=== PATIENT | male | born 1970 | race Caucasian/White ===

== ENCOUNTER 2021-09-27 09:20 | Emergency (ER) | payer SELFPAY ==
--- NOTE | ~2021-09-27 | US_ITS ---
EXAMINATION: US RETROPERITONEAL LIMITED (RENAL ONLY) CLINICAL INFORMATION: L sided pain hx of kidney stones. COMPARISON: None TECHNIQUE: Ultrasound of the kidneys and bladder are performed using grayscale imaging and color Doppler. FINDINGS: RIGHT KIDNEY: 11.1 x 5.4 x 6.8 cm (SAG x AP x TRV). The kidney is normal in size, contour, and echogenicity. Renal cortical thickness is normal. No focal parenchymal lesions or hydronephrosis. There are specular echoes with associated twinkling artifact on color Doppler consistent with nonobstructing calculi. Larger is interpolar measuring 1.3 x 0.5 x 1.0 cm. There is mid to lower pole calculus or 0.8 x 0.5 cm. LEFT KIDNEY: 13.4 x 6.8 x 5.0 cm (SAG x AP x TRV). The kidney is normal in size, contour, and echogenicity. Renal cortical thickness is normal. There is a simple cyst lower pole measuring 1.2 cm. No additional imaging follow-up required. There is moderate hydronephrosis. A nonobstructing lower pole calculus is present measuring 0.8 x 0.4 cm. Obstructing ureteral calculus is not identified by ultrasound. BLADDER: Bladder is distended symmetrically. There are ureteral jets seen on both sides. No ureteral obstruction. No bladder calculus or debris at bladder base. No visible bladder wall thickening or diverticulum. US/US retroperitoneal limited IMPRESSION: Left: -Moderate hydronephrosis. -Nonobstructing lower pole calculus 0.8 cm. Right: -No hydronephrosis. -Nonobstructing calculi, larger interpolar 1.3 x 0.5 x 1.0 cm. Bladder: -No bladder calculus or debris at bladder base. -Distal ureters patent, bilateral ureteral jets present.
--- NOTE | ~2021-09-27 | CT_ITS ---
EXAMINATION: CT ABDOMEN AND PELVIS WITHOUT CONTRAST CLINICAL INFORMATION: Acute kidney insufficiency and left flank pain COMPARISON: None TECHNIQUE: Multidetector volumetric imaging was performed from the superior aspect of the liver through the pubic symphysis. Sagittal and coronal reformatted images were obtained on the technologist's workstation. This CT examination was performed using dose optimization techniques as appropriate, variously including the following: *Automated exposure control *Adjustment of mA and/or kV according to patient size (this includes techniques or standardized protocols for targeted exams where dose is matched to indication/reason for exam; i.e. extremities or head) *Use of iterative reconstruction technique DLP: 847 mGy-cm FINDINGS: LUNG BASES: The visualized lung bases are unremarkable. LIVER, GALLBLADDER, AND BILIARY TREE: The liver is normal in size, shape, and attenuation. No focal hepatic lesion or biliary ductal dilatation is present. The gallbladder is unremarkable with no evidence of radiopaque gallstones, gallbladder wall thickening, or obvious pericholecystic inflammatory changes. PANCREAS: Unremarkable. SPLEEN: Mildly enlarged at 13.7 cm. ADRENAL GLANDS: Unremarkable. KIDNEYS AND URETERS: Left: There is a 4 mm obstructing stone in the proximal left ureter with moderate hydronephrosis. There is a lower pole 6 mm nonobstructing calculus present. Stones measure about 885 Hounsfield units. The lower pole calculus is 16 cm from posterior axillary line. Perinephric stranding present secondary to probable forniceal rupture. No left-sided renal masses are present. Right: At least 5 renal calculi are present in the right kidney the largest measuring 9 x 8 mm in size. The largest stone measures 900 Hounsfield units and is 12 cm from the posterior axillary line. No renal masses or hydronephrosis is seen. The right ureter is normal. BLADDER: Unremarkable. GASTROINTESTINAL TRACT: The small and large bowel are unremarkable. The appendix is not identified. ABDOMINAL WALL: No significant hernia is appreciated. LYMPH NODES: Normal. VASCULAR: Unremarkable. PELVIC VISCERA: Unremarkable. OSSEOUS STRUCTURES: Degenerative changes present throughout the spine most marked from L4 to S1. CT/CT abdomen pelvis wo con IMPRESSION: Obstructing 4 mm proximal left ureteral calculus with associated hydronephrosis. There are other bilateral nonobstructing intrarenal calculi. Other incidental findings described above Fleischner guidelines were followed.
[2021-09-27 09:37] VITALS: BP 170/105; PULSE 73; RESP 18; TEMP 36.8; O2SAT 99; BMI 33.2
[2021-09-27 09:42] VITALS: BP 177/91; PULSE 71
--- NOTE | 2021-09-27 09:42 | ED.ABDPAIN ---
HPI - Abdominal Pain General Chief Complaint: Urogenital-Male Stated Complaint: referred for ultrasound, kidney stones? Time Seen by Provider: 09/27/21 09:39 Source: patient Mode of arrival: ambulatory Limitations: no limitations History of Present Illness MD elicited complaint: flank pain Pertinent past history: kidney stones Onset (ago): day(s) (2) Pain Consistency: constant Location: L flank Severity: moderate Quality: stabbing Radiation: none Migration to: no migration Exacerbating factors: nothing Relieving factors: nothing Context: history of similar episodes Associated symptoms: nausea and hematuria Related Data Previous Rx's Medication Instructions Recorded morphine 15 mg immediate release 15 mg PO TID PRN pain #10 tabs 09/27/21 tablet ondansetron 4 mg disintegrating 4 mg PO Q8H PRN nausea and 09/27/21 tablet vomiting #20 tabs prednisone 20 mg tablet 40 mg PO DAILY 4 days #8 tabs 09/27/21 tamsulosin 0.4 mg capsule 0.4 mg PO DAILY 7 days #7 caps 09/27/21 Allergies Allergy/AdvReac Type Severity Reaction Status Date / Time No Known Allergies Allergy Unverified 12/25/19 15:38 Review of Systems Review of Systems Constitutional : No Fever, No Chills ENT/Mouth : No sore throat Eyes: No Eye Pain, No Swelling, No Redness Cardiovascular : No Chest Pain, No SOB Respiratory : No Cough, No Sputum, No Wheezing Gastrointestinal : positive Nausea, no Vomiting, No Diarrhea, positive abdominal pain Genitourinary : no Dysuria, no urinary frequency, positive Hematuria, positive Flank Pain, no hesitancy Musculoskeletal : No joint pain, No Myalgias Skin : No Skin Lesions, No rash Neuro : No Weakness, No Numbness, No Headache Psych : No Anxiety/Panic, No Depression Heme/Lymph: No Bruising, No Lymphadenopathy Endocrine : No Polyuria, No Polydipsia All other systems reviewed and are negative [facility] Past Medical History Attestation statement: The following information was validated with the patient. Medical History Kidney stones Social History Social History Patient Tobacco Use Status: Never used Tobacco Advance Directives: No Advance Directives Information Provided: No Physical Exam ED Vital Signs: Vital Signs - 24 hr 09/27/21 09:37 09/27/21 09:42 09/27/21 13:40 Temperature 98.3 F Pulse Rate 73 71 63 Respiratory Rate 18 12 Blood Pressure 170/105 H 177/91 H 173/98 H Pulse Oximetry 99 100 Oxygen Delivery Method Room Air Room Air BMI result Body Mass Index 33.2 Appearance: Alert. Oriented X3. No acute distress. Eyes: Pupils equal, round and reactive to light. ENT: Pharynx normal. Neck: Normal inspection. Neck supple. CVS: Normal heart rate and rhythm. Pulses normal. Respiratory: No respiratory distress. Breath sounds normal. Abdomen: Soft and mild L CVA ttp Skin: Skin warm and dry. Normal skin color. Normal skin turgor. Extremities: No lower extremity edema. No calf ttp Neuro: Oriented X 3. No motor deficit. No sensory deficit. Course Course Course Narrative: Cr 1.2 in 2015 will hydrate and recheck today obstructing prox 4mm stone will send message to urology given Cr discussion with Dr. Alegria - aware of stone and mild JO though only 0.4 off from baseline - no prior Cr since 2015 will send home with follow up in the next week - flomax, repeat Cr in 3 days, prednisone, PO pain medications MDM - Abdominal Pain MDM Narrative Medical decision making narrative: 51 yo male with hx of kidney stones here with c/o L flank pain feels like a stone to the patient at this time he is not toxic. Will need basic labs, UA, US to evaluate size and location of stone - dispo per results and findings. Lab Data Result diagrams: 09/27/21 09:59 09/27/21 12:40 Labs: Lab Results 09/27/21 09/27/21 09/27/21 Range/Units 09:55 09:59 09:59 WBC 12.2 H (4.8-10.8) X10*3/uL RBC 4.94 (4.60-5.80) X10*6/uL Hgb 14.9 (14.0-18.0) g/dl Hct 43.8 (42.0-52.0) % MCV 88.7 (80.0-98.0) fL MCH 30.2 (27.0-33.0) pg MCHC 34.0 (31.0-36.0) g/dl RDW 12.6 (11.0-16.0) % Plt Count 210 (160-400) X10*3/uL MPV 10.6 (9.4-12.4) fL Immature Gran % (Auto) 0.4 (0.0-0.4) % Neut % (Auto) 81.5 H (45-73) % Lymph % (Auto) 7.0 L (20-40) % [place] % (Auto) 8.8 (2-11) % Eos % (Auto) 2.1 (0-4) % Baso % (Auto) 0.2 (0-2) % Lymph # (Auto) 0.9 L (1.2-4.9) X10*3/uL [place] # (Auto) 1.1 (0.1-1.2) X10*3/uL Eos # (Auto) 0.3 (0.0-0.4) X10*3/uL Baso # (Auto) 0.0 (0.0-0.2) X10*3/uL Abs Immat Gran (auto) 0.05 H (0.00-0.03) X10*3/uL Absolute Neuts (auto) 10.0 H (2.0-8.3) x10*3/uL Absolute Nucleated RBC 0.000 (0.0-0.012) X10*3/uL Nucleated RBC % (auto) 0.0 (0.0-0.2) /100WBC Sodium 136 (135-145) mmol/L Potassium 5.3 H (3.3-5.1) mmol/L Chloride 102 (96-108) mmol/L Carbon Dioxide 27 (22-29) mmol/L Anion Gap 12 (12-20) BUN 19 H (9-16) mg/dL Creatinine 1.71 H (0.5-1.4) mg/dL Estim Creat Clear Calc 66.5 Estimated GFR 43 Random Glucose 182 H (60-115) mg/dL Calcium 9.5 (8.4-10.2) mg/dL Total Bilirubin 0.7 (0.0-1.0) mg/dL Direct Bilirubin 0.3 (0.0-0.5) mg/dL AST 28 (5-37) U/L ALT 21 (0-40) U/L Alkaline Phosphatase 77 (39-117) U/L Total Protein 7.1 (6.5-8.0) g/dL Albumin 4.3 (3.5-5.0) g/dL Lipase 47 (8-78) U/L Urine Color YELLOW Urine Appearance CLEAR Urine pH 5.5 (5.0-8.0) Ur Specific [place] 1.015 (1.005-1.025) Urine Protein NEG (NEG-TRACE) MG/DL Urine Glucose (UA) NEG (NEG) MG/DL Urine Ketones NEG (NEG) MG/DL Urine Blood TRACE (NEG) Urine Nitrite NEG (NEG) Ur Leukocyte Esterase NEG (NEG) Urine RBC 1-4 (0) /HPF Urine WBC 0-2 (0-4) /HPF Ur Squamous Epith Cells NONE /LPF Urine Bacteria NONE /LPF 09/27/21 Range/Units 12:40 WBC (4.8-10.8) X10*3/uL RBC (4.60-5.80) X10*6/uL Hgb (14.0-18.0) g/dl Hct (42.0-52.0) % MCV (80.0-98.0) fL MCH (27.0-33.0) pg MCHC (31.0-36.0) g/dl RDW (11.0-16.0) % Plt Count (160-400) X10*3/uL MPV (9.4-12.4) fL Immature Gran % (Auto) (0.0-0.4) % Neut % (Auto) (45-73) % Lymph % (Auto) (20-40) % [place] % (Auto) (2-11) % Eos % (Auto) (0-4) % Baso % (Auto) (0-2) % Lymph # (Auto) (1.2-4.9) X10*3/uL [place] # (Auto) (0.1-1.2) X10*3/uL Eos # (Auto) (0.0-0.4) X10*3/uL Baso # (Auto) (0.0-0.2) X10*3/uL Abs Immat Gran (auto) (0.00-0.03) X10*3/uL Absolute Neuts (auto) (2.0-8.3) x10*3/uL Absolute Nucleated RBC (0.0-0.012) X10*3/uL Nucleated RBC % (auto) (0.0-0.2) /100WBC Sodium (135-145) mmol/L Potassium (3.3-5.1) mmol/L Chloride (96-108) mmol/L Carbon Dioxide (22-29) mmol/L Anion Gap (12-20) BUN (9-16) mg/dL Creatinine 1.68 H (0.5-1.4) mg/dL Estim Creat Clear Calc 67.7 Estimated GFR 43 Random Glucose (60-115) mg/dL Calcium (8.4-10.2) mg/dL Total Bilirubin (0.0-1.0) mg/dL Direct Bilirubin (0.0-0.5) mg/dL AST (5-37) U/L ALT (0-40) U/L Alkaline Phosphatase (39-117) U/L Total Protein (6.5-8.0) g/dL Albumin (3.5-5.0) g/dL Lipase (8-78) U/L Urine Color Urine Appearance Urine pH (5.0-8.0) Ur Specific [place] (1.005-1.025) Urine Protein (NEG-TRACE) MG/DL Urine Glucose (UA) (NEG) MG/DL Urine Ketones (NEG) MG/DL Urine Blood (NEG) Urine Nitrite (NEG) Ur Leukocyte Esterase (NEG) Urine RBC (0) /HPF Urine WBC (0-4) /HPF Ur Squamous Epith Cells /LPF Urine Bacteria /LPF Discharge Plan Discharge Clinical Impression: JO (acute kidney injury), Ureterolithiasis Patient Disposition: Home, Self-Care Instructions: Impaired Kidney Function (ED), Ureteral Stones (ED) Additional Instructions: return to ED for any worsening symptoms or concerns repeat kidney function in 3 days - Primary care, urgent care Cr 1.6 today no motrin, aleve, naprosyn, ibuprofen - TYLENOL IS OKAY if no improvement in the next 5 days call urology Left: There is a 4 mm obstructing stone in the proximal left ureter with moderate hydronephrosis. There is a lower pole 6 mm nonobstructing calculus present. Stones measure about 885 Hounsfield units. The lower pole calculus is 16 cm from posterior axillary line. Perinephric stranding present secondary to probable forniceal rupture. No left-sided renal masses are present. Right: At least 5 renal calculi are present in the right kidney the largest measuring 9 x 8 mm in size. The largest stone measures 900 Hounsfield units and is 12 cm from the posterior axillary line. No renal masses or hydronephrosis is seen. The right ureter is normal. Prescriptions: New prednisone 20 mg tablet 40 mg PO DAILY 4 Days Qty: 8 0RF tamsulosin 0.4 mg capsule 0.4 mg PO DAILY 7 Days Qty: 7 0RF morphine 15 mg tablet 15 mg PO TID PRN (Reason: pain) Qty: 10 0RF Rx Instructions: partial fill okay; Partial Fill upon patient request. ondansetron 4 mg tablet,disintegrating 4 mg PO Q8H PRN (Reason: nausea and vomiting) Qty: 20 0RF Referrals: Davian Alegria MD [Physician] - 5 days (if not better) Stand Alone Forms: Work/School Release
[2021-09-27 10:04] LABS: MANUAL DIFF FLAG NO
[2021-09-27 10:05] LABS: Appearance Urine CLEAR; Color Urine YELLOW; Glucose Urine UA NEG (NEG); Leukocyte Esterase Urine NEG (NEG); Nitrite Urine NEG (NEG); PH 5.5 (5.0-8.0); Specific Gravity - Urine 1.015 (1.005-1.025); UACC Culture Trigger NO; Urine Blood TRACE (NEG); Urine Ketones NEG (NEG); Urine Protein NEG (NEG-TRACE)
[2021-09-27 10:12] LABS: Basophils Percent Auto 0.2 % (0-2); Eosinophils Absolute Auto 0.3 X10*3/uL (0.0-0.4); Eosinophils Percent Auto 2.1 % (0-4); Hematocrit 43.8 % (42.0-52.0); Hemoglobin 14.9 g/dl (14.0-18.0); Imm Gran Abs Auto 0.05 X10*3/uL (0.00-0.03); Imm Gran Pct Auto 0.4 % (0.0-0.4); Lymphocytes Absolute Auto 0.9 X10*3/uL (1.2-4.9); Mean Corpuscular Hemoglobin 30.2 pg (27.0-33.0); Mean Corpuscular Volume 88.7 fL (80.0-98.0); Mean Platelet Volume 10.6 fL (9.4-12.4); Monocytes Absolute Auto 1.1 X10*3/uL (0.1-1.2); Monocytes Percent Auto 8.8 % (2-11); Neutrophils Percent Auto 81.5 % (45-73); Platelet Count 210 X10*3/uL (160-400); Red Blood Count 4.94 X10*6/uL (4.60-5.80); Red Cell Distribution Width 12.6 % (11.0-16.0); White Blood Count 12.2 X10*3/uL (4.8-10.8)
[2021-09-27 10:23] LABS: WBC Urine 0-2 /HPF (0-4)
[2021-09-27 10:29] LABS: Alanine Aminotransferase 21 U/L (0-40); Albumin Level 4.3 g/dL (3.5-5.0); Alkaline Phosphatase 77 U/L (39-117); Anion Gap 12 (12-20); Aspartate Amino Transferase 28 U/L (5-37); Bilirubin Direct 0.3 mg/dL (0.0-0.5); Bilirubin Total 0.7 mg/dL (0.0-1.0); Blood Urea Nitrogen 19 mg/dL (9-16); Calcium 9.5 mg/dL (8.4-10.2); Carbon Dioxide 27 mmol/L (22-29); Chloride 102 mmol/L (96-108); Creatinine Clr Calc Pharmacy 66.5; Estimated Glomerular Filt Rate 43; Glucose Random 182 mg/dL (60-115); Lipase 47 U/L (8-78); Potassium 5.3 mmol/L (3.3-5.1); Sodium 136 mmol/L (135-145); Total Protein 7.1 g/dL (6.5-8.0)
[2021-09-27] MEDS: 0.9 % Sodium Chloride 1,000 ML 999 ML IV (11:24)
[2021-09-27 12:59] LABS: Creatinine Clr Calc Pharmacy 67.7; Estimated Glomerular Filt Rate 43
[2021-09-27 13:40] VITALS: BP 173/98; PULSE 63; RESP 12; O2SAT 100
[2021-09-27] MEDS: predniSONE 20 MG TABLET 40 MG PO (14:51)
[2021-09-27] MEDS: Tamsulosin HCL 0.4 MG CAPSULE PO (14:51)
== END 2021-09-27 15:22 | disposition home or self-care (01) ==
PROVIDERS: Emergency Provider Emergency Medicine
DX: N20.1 Calculus of ureter (principal); N17.9 Acute kidney failure, unspecified; R10.32 Left lower quadrant pain; Z79.899 Other long term (current) drug therapy
CPT/HCPCS: 36415; 74176; 76775; 80048; 80076; 81001; 82565; 83690; 85025; 96360; 99284